=== PATIENT | male | born 1990 | race Caucasian/White ===

== ENCOUNTER 2020-02-19 19:41 | Emergency (ER) | payer SELFPAY ==
[~2020-02-19] VITALS: Ht 175.2 cm; Wt 86.8 kg
[2020-02-19 19:45] VITALS: BP 167/92
--- NOTE | 2020-02-19 19:56 | ED Upper Extremity ---
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 Patient has swelling on his right knuckles, around the pinky finger. Nursing Sepsis Screen: No Definite Risk Source: patient Exam Limitations: no limitations History of Present Illness Date Seen by Provider: Feb 19, 2020 Time Seen by Provider: 19:47 Initial Comments Patient presents ER by private conveyance with chief complaint that he punched a bed frame approximately an hour prior to arrival. She's been using ice but no Tylenol or Motrin. He says the pain is minimal but is having some swelling. No history of fracture or injury to this hand. He has no numbness tingling or weakness. He can move all 5 digits. Allergies and Home Medications Allergies Coded Allergies: No Known Drug Allergies (Unverified , 02/19/20) Patient Home Medication List Home Medication List Reviewed: Yes Review of Systems Constitutional: No chills, No diaphoresis EENTM: No ear discharge, No ear pain Respiratory: No cough, No short of breath Cardiovascular: No chest pain, No edema All Other Systems Reviewed Negative Unless Noted: Yes Past Pncmanf-Crdyno-Bhnmlg Hx Patient Social History Alcohol Use: Denies Use Recreational Drug Use: No Smoking Status: Current Everyday Smoker Type Used: Cigarettes Recent Foreign Travel: No Contact w/Someone Who Travel: No Recent Infectious Disease Expo: No Physical Abuse: No Sexual Abuse: No Mistreated: No Fear: No Seasonal Allergies Seasonal Allergies: No Past Medical History Surgeries: No Respiratory: No Cardiac: No Neurological: No Genitourinary: No Gastrointestinal: No Musculoskeletal: No Endocrine: No HEENT: No Cancer: No Psychosocial: No Integumentary: No Physical Exam Vital Signs Vital Signs - First Documented 02/19/20 19:45 Temp 36.8 Pulse 104 Resp 18 B/P (MAP) 167/92 (117) O2 Delivery Room Air Capillary Refill : Less Than 3 Seconds Height, Weight, BMI Height: '" Weight: lbs. oz. kg; 28.00 BMI Method: General Appearance: WD/WN, mild distress HEENT: normal ENT inspection, pharynx normal Neck: full range of motion, normal inspection Cardiovascular: normal peripheral pulses, regular rate, rhythm Respiratory: no respiratory distress, no accessory muscle use Wrist: Yes normal inspection, Yes non-tender, Yes no evidence of injury, Yes normal ROM Hand: normal ROM, Right, bone tenderness (fourth and fifth metacarpal), swellin g Progress/Results/Core Measures Results/Orders My Orders Orders - ADAM PRESCOTT Hand 3 View Right (02/19/20 19:56) Vital Signs/I&O 02/19/20 19:45 Temp 36.8 Pulse 104 Resp 18 B/P (MAP) 167/92 (117) O2 Delivery Room Air Blood Pressure Mean: 117 Diagnostic Imaging Diagonstic Imaging: Xray Plain Films/CT/US/NM/MRI: hand (r) Comments [facility] [place], [place] NAME: JEWELL RICKETTS [facility] REC#: [id number] PT STATUS: REG ER : 1990 PHYSICIAN: ADAM PRESCOTT MD ADMIT DATE: 02/19/20/ER FS Draft Date of Exam:02/19/20 HAND 3 VIEW RIGHT HISTORY: Right hand pain and swelling after injury TECHNIQUE: 3 views of the right hand COMPARISON: None FINDINGS: There is a mildly comminuted anteriorly angulated fracture of the right 5th metacarpal neck. The fracture line appears to extend into the articular surface. Alignment otherwise appears normal. Joint spaces are preserved. IMPRESSION: 1. Mildly angulated fracture of the right 5th metacarpal neck extending into the articular surface. Dictated on workstation # [id number] Dict: 02/19/202006 Trans: 02/19/202011 SLADE [id number] Interpreted by: DORENE REN MD Electronically signed by: Reviewed: Reviewed by Me Departure Impression Primary Impression: Boxer's metacarpal fracture, neck, closed Qualified Codes: S62.339A - Displaced fracture of neck of unspecified metacarpal bone, initial encounter for closed fracture Disposition: 01 HOME, SELF-CARE Condition: Stable Departure-Patient Inst. Decision time for Depature: 20:26 Referrals: JEWELL CHINO MD Patient Instructions: Boxer's Fracture (DC) Add. Discharge Instructions: Ice 20 minutes every 2 hours while awake for the first 2-3 days. Elevate the hand above the level of your heart to reduce pain. Wear the splint until you see the surgeon and they will converted to a cast if appropriate. Tylenol 1000 mg every 8 hours as necessary for pain. Ibuprofen 800 mg every 8 hours as necessary for pain. No lifting with the right hand until released by the surgeon. Hydrocodone one tablet every 6 hours as necessary for intolerable, breakthrough pain. All discharge instructions reviewed with patient and/or family. Voiced understanding. Work/School Note: Work Release Form Date Seen in the Emergency Department: Feb 19, 2020 Return to Work: Feb 20, 2020 Restrictions: Need Release from Doctor Other Restrictions Listed Below: Splint to right hand. No lifting with right hand until released. Copy Copies To 1: JEWELL CHINO MD, TITUS J Feb 19, 2020 19:56
--- NOTE | 2020-02-19 20:14 | Diagnostic Imaging Report ---
HISTORY: Right hand pain and swelling after injury TECHNIQUE: 3 views of the right hand COMPARISON: None FINDINGS: There is a mildly comminuted anteriorly angulated fracture of the right 5th metacarpal neck. The fracture line appears to extend into the articular surface. Alignment otherwise appears normal. Joint spaces are preserved. IMPRESSION: 1. Mildly angulated fracture of the right 5th metacarpal neck extending into the articular surface. Dictated by: Dictated on workstation # [id number]
[2020-02-19] MEDS ORDERED: ACHD5005 PO (20:30)
[2020-02-19] MEDS ORDERED: RX-HYDROCODONE/APAP 5/325 MG #4 TAB PK PO PRN (20:45)
== END 2020-02-19 20:37 | disposition home or self-care (01) ==
LOC: ER FS 19:42
DX: S62.336A Displaced fracture of neck of fifth metacarpal bone, right hand, initial encounter for closed fracture (principal); F17.210 Nicotine dependence, cigarettes, uncomplicated; W22.8XXA Striking against or struck by other objects, initial encounter
CPT/HCPCS: 29125; 73130

== ENCOUNTER → 2020-03-03 | Outpatient (CLI) | payer SELFPAY ==
[~2020-03-03] MED LIST: ACHD5005 PO
--- NOTE | 2020-03-03 14:00 | Diagnostic Imaging Report ---
INDICATION: Followup right hand fracture. TIME OF EXAM: 1:47 PM. COMPARISON: 02/19/2020. FINDINGS: The fracture of the distal 5th metacarpal is again noted. There continues to be mild volar angulation of the distal fracture fragment. No significant displacement is seen. The remaining metacarpals and phalanges are intact. The carpus is unremarkable. IMPRESSION: Mildly angulated distal 5th metacarpal fracture, similar in appearance to the examination from 02/19/2020. The fracture lines remain clearly visible. Dictated by: Dictated on workstation # [id number]
== END ==
LOC: RAD FS 13:30
PROVIDERS: ATTEND Nurse Practitioner
DX: S62.336A Displaced fracture of neck of fifth metacarpal bone, right hand, initial encounter for closed fracture (principal); X58.XXXA Exposure to other specified factors, initial encounter
CPT/HCPCS: 73130